=== PATIENT | male | born 1945 | race Caucasian/White ===

== ENCOUNTER 2025-05-11 06:14 | Day surgery (SDC) | payer MEDICARE, BC ==
[~2025-05-11] VITALS: Ht 180.3 cm; Wt 90.0 kg
[~2025-05-11 06:14] MED LIST: Balanced Salt Epinephrine Irrigation Solution 500 mL IR SCH; Moxifloxacin HCL 0.5 MG/0.1 ML 0.4MLSYR LEFTEYE SCH; Ondansetron 4 MG SoluTab MM PRN; PHENYLEPHRINE\\TROPICAMIDE\\TETRACAINE OPHTHALMIC DILATING SOLN LEFTEYE PRN; Povidone-Iodine 450 DROP/30 ML Solution LEFTEYE SCH; Povidone-Iodine 450 DROP/30 ML Solution ONE; Tetracaine HCl/Pf 0.5% Opth Soln 4 ml ONE; diazePAM 5 MG,diazePAM 2 MG PO SCH
[2025-05-11] MEDS ORDERED: GABA300 PO (06:35)
[2025-05-11] MEDS ORDERED: RAMI5 PO (06:35)
[2025-05-11] MEDS ORDERED: NAPR220 PO (06:36)
[2025-05-11] MEDS ORDERED: B-12500 MC2 PO (06:39)
--- NOTE | 2025-05-11 07:34 | NUR ---
05/11/25 0734 Rosanne Chandler HR: 58 BP: 112/82 SPO2: 97% ON 10L BLOW BY O2
[2025-05-11] MEDS ORDERED: Balanced Salt Epinephrine Irrigation Solution 500 mL LEFTEYE ONE (07:36)
[2025-05-11] MEDS ORDERED: Moxifloxacin HCL 0.5 MG/0.1 ML 0.4MLSYR LEFTEYE ONE (07:36)
== END 2025-05-11 08:04 | disposition home or self-care (01) ==
LOC: ORSCSDS 06:14
PROVIDERS: Student in an Organized Health Care Education/Training Program
PROC: 08RK3JZ Replacement of Left Lens with Synthetic Substitute, Percutaneous Approach (ICD-10-PCS; principal; 2025-05-11 07:30)
DX: H25.813 Combined forms of age-related cataract, bilateral (principal); Z87.891 Personal history of nicotine dependence; H35.89 Other specified retinal disorders; H35.3131 Nonexudative age-related macular degeneration, bilateral, early dry stage; I10 Essential (primary) hypertension; Z79.899 Other long term (current) drug therapy
CPT/HCPCS: 93005; 93010; A9270; J2003; V2632

== ENCOUNTER 2025-05-18 06:14 | Day surgery (SDC) | payer MEDICARE, BC ==
[~2025-05-18] VITALS: Ht 180.3 cm; Wt 89.9 kg
[~2025-05-18 06:14] MED LIST changes: +B-12500 MC2 PO; +GABA300 PO; -Moxifloxacin HCL 0.5 MG/0.1 ML 0.4MLSYR LEFTEYE SCH; +Moxifloxacin HCL 0.5 MG/0.1 ML 0.4MLSYR RIGHTEYE SCH; +NAPR220 PO; -PHENYLEPHRINE\\TROPICAMIDE\\TETRACAINE OPHTHALMIC DILATING SOLN LEFTEYE PRN; +PHENYLEPHRINE\\TROPICAMIDE\\TETRACAINE OPHTHALMIC DILATING SOLN RIGHTEYE PRN; -Povidone-Iodine 450 DROP/30 ML Solution LEFTEYE SCH; +Povidone-Iodine 450 DROP/30 ML Solution RIGHTEYE SCH; +RAMI5 PO
--- NOTE | 2025-05-18 06:45 | NUR ---
05/18/25 0645 Rosanne Mcneal PT STATES ANXIETY LEVEL IS 0/10 IN PREOP CALL LIGHT IN HAND PT IS ON CONTINUOUS PULSE OX MONITORING IN PREOP
--- NOTE | 2025-05-18 07:29 | NUR ---
05/18/25 0729 Rosanne Chandler HR:59 BP:117/73 SPO2:99% ON 10L BLOW BY O2
--- NOTE | 2025-05-18 07:44 | NUR ---
05/18/[address] AT BEDSIDE
== END 2025-05-18 07:55 | disposition home or self-care (01) ==
LOC: ORSCSDS 06:14
PROVIDERS: Student in an Organized Health Care Education/Training Program
PROC: 08RJ3JZ Replacement of Right Lens with Synthetic Substitute, Percutaneous Approach (ICD-10-PCS; principal; 2025-05-18 07:30)
DX: H25.811 Combined forms of age-related cataract, right eye (principal); Z96.1 Presence of intraocular lens; I10 Essential (primary) hypertension; H35.89 Other specified retinal disorders; Z87.891 Personal history of nicotine dependence; Z79.899 Other long term (current) drug therapy
CPT/HCPCS: A9270; J2003; V2632